=== PATIENT | female | born 1995 | race Caucasian/White ===

== ENCOUNTER 2019-12-18 15:46 | Outpatient (CLI) | payer OTHER, SELFPAY ==
--- NOTE | ~2019-12-18 | XR_ITS ---
XR hand RT 2V DATE: 12/18/2019 16:07 INDICATION: Palmar third metacarpal area pain TECHNIQUE: 2 views COMPARISON: None FINDINGS: No fracture or dislocation, periosteal reaction or bone destruction. No erosive change. IMPRESSION: Negative Reviewed, dictated and finalized at location A. IMPRESSION: Negative
--- NOTE | 2019-12-18 15:51 | ECG_ITS ---
Measurements Intervals [place] Rate: 61 P: 43 NV: 137 QRS: 55 QRSD: 89 T: 34 QT: 406 QTc: 409 Interpretive Statements SINUS RHYTHM WITH SINUS ARRHYTHMIA NORMAL ECG Electronically Signed On 12-18-2019 16:32:42 CDT by Rudi Russell D.O.
[2019-12-18 16:26] LABS: Mean Corpuscular HGB Conc 34.1 g/dl (32-36); Mean Corpuscular Hemoglobin 32.4 pg (26-34); Mean Platelet Volume 11.1 fl (7.4-10.4); Platelet Count Result 171 k/mm3 (150-375); Red Blood Count 4.63 M/mm3 (4.2-5.4); Red Cell Distribution Width 12.1 % (11.5-14.5); White Blood Count 6.5 K/mm3 (4.5-10.0)
[2019-12-18 16:36] LABS: Potassium 4.4 mmol/L (3.4-5.0)
[2019-12-18 16:47] LABS: Blood Urea Nitrogen 14 mg/dL (7-17); Calcium 9.3 mg/dL (8.4-10.2); Carbon Dioxide 27 mmol/L (22-30); Chloride 103 mmol/L (98-107); Estimated Glomerular Filt Rate > 60; Glucose 100 mg/dL (65-105); Sodium 138 mmol/L (137-145)
== END 2019-12-18 15:47 | disposition home or self-care (01) ==
LOC: ANHIMG 15:51
PROVIDERS: PCP Family Medicine; Visit Provider Nurse Practitioner Family
DX: F41.9 Anxiety disorder, unspecified (principal); I10 Essential (primary) hypertension; R07.89 Other chest pain; M79.641 Pain in right hand
CPT/HCPCS: 36415; 73120; 80048; 84443; 85027; 93005

== ENCOUNTER 2021-02-06 12:34 | Emergency (ER) | payer OTHER, SELFPAY ==
[2021-02-06 12:40] VITALS: BP 121/93; PULSE 83; RESP 20; TEMP 36.9; O2SAT 100
--- NOTE | 2021-02-06 13:21 | ED.FEMALEGU ---
HPI - Female Genitourinary General Chief complaint: Urogenital-Female Stated complaint: poss uti Time Seen by Provider: 02/06/21 12:50 Source: patient, RN notes reviewed and old records reviewed Mode of arrival: ambulatory Limitations: no limitations History of Present Illness HPI Narrative: 25 year old female who presents to [facility] care with complaints of one day duration of burning with urination and urinary frequency. She reports that she has had UTIs in the past with similar symptoms.Patient states that she has been taking OTC Cystex for her symptoms without resolution. Patient denies any known fevers, chills or sweats, denies any suprapubic pressure or any CVA tenderness. Patient denies any vaginal drainage or itching reports no concerns for STD exposure. MD elicited complaint: dysuria and UTI Pertinent past history: recurrent UTIs Onset (ago): day(s) (1) Related Data Allergies Allergy/AdvReac Type Severity Reaction Status Date / Time sulfamethoxazole Allergy Intermediate Hives Verified 07/31/20 14:35 [From Bactrim] trimethoprim [From Bactrim] Allergy Intermediate Hives Verified 07/31/20 14:35 azithromycin Allergy Unknown Unknown Verified 07/31/20 11:26 Review of Systems Review of Systems: CONSTITUTIONAL: Denies fever, chills, or sweats. EYES: Denies visual changes, redness, or discharge. ENT: Denies rhinorrhea, congestion, sore throat, or otalgia. CARDIOVASCULAR: Denies chest pain, palpitations, or edema. RESPIRATORY: Denies cough or dyspnea. GASTROINTESTINAL: Denies abdominal pain, nausea, vomiting, or diarrhea. GENITOURINARY:Positive dysuria or hematuria. SKIN: Denies rash or itching. MUSCULOSKELETAL: Denies back pain, joint pain, or myalgia. NEUROLOGIC: Denies headache, numbness, or weakness. PSYCHIATRIC: Denies anxiety or depression. All systems reviewed & are unremarkable except as noted in HPI and below PMFSH Past Medical History Medical History (Updated 02/08/21 @ 08:58 by Baylee Chaparro NP) Latent tuberculosis UTI (urinary tract infection) Surgical History Surgical History (Updated 02/06/21 @ 13:46 by Baylee Chaparro NP) History of placement of ear tubes History of tonsillectomy Family History Family History (Updated 02/06/21 @ 13:42 by Baylee Chaparro NP) Grandparent Diabetes mellitus Family history of coronary artery disease Mother Asthma Father Hypertension Social History Social History (Updated 02/06/21 @ 13:43 by Baylee Chaparro NP) Smoking status: Never smoker Alcohol intake: current Alcohol use details: social Substance use: never Living arrangements: with family Gender identity (if verbalized by the patient): Female Comments At time of signature, agree with nursing past medical, surgical, social and family history. There is no relevant family history pertinent to the presenting complaint Exam Narrative: GENERAL: Well-appearing, well-nourished, and in no acute distress. HEAD: Normocephalic, atraumatic. EYES: PERRLA and EOMI. ENT: Nares clear, no rhinorrhea or epistaxis. Mucous membranes moist.TM's normal with good light reflex, throat pink with no lesions or exudates, no tonsils present NECK: Supple.no lymphadenopathy CHEST: Clear to auscultation. No respiratory distress.SAO2 100% on room air HEART: Regular rate and rhythm. No murmur heard. Normal peripheral pulses. ABDOMEN: Soft, nontender, nondistended, normal active bowel sounds.No CVA tenderness on examination EXTREMITIES: Normal range of motion. No edema. SKIN: Warm, dry, no rash. NEURO: No focal deficits. Alert and oriented x3. Course Vital Signs Vital signs: Vital Signs Temperature 36.9 C 02/06/21 12:40 Pulse Rate 83 02/06/21 12:40 Respiratory Rate 20 02/06/21 12:40 Blood Pressure 121/93 H 02/06/21 12:40 Pulse Oximetry 100 02/06/21 12:40 Temperature 36.9 C 02/06/21 12:40 Pulse Rate 83 02/06/21 12:40 Respiratory Rate 20 02/06/21 12:40 Blood Pressure
== END 2021-02-06 13:40 | disposition home or self-care (01) ==
PROVIDERS: Emergency Provider Registered Nurse; PCP Family Medicine
DX: N39.0 Urinary tract infection, site not specified (principal)
CPT/HCPCS: 81003; 87086; 87088; 99213; G0463